=== PATIENT | male | born 1965 | race Caucasian/White ===

== ENCOUNTER 2016-07-09 12:03 | Emergency (ER) | payer MEDICARE, OTHER ==
[~2016-07-09] VITALS: Ht 177.8 cm; Wt 79.4 kg
[~2016-07-09 12:03] MED LIST: AMLODIPINE BESY10 MG PO
--- NOTE | 2016-07-09 12:21 | Emergency Room Report ---
History of Present Illness General Chief Complaint: Upper Extremity Injury Source: Patient (MANUEL MUELLER) Present Illness HPI The patient is a 50-year-old male presenting with right fourth finger pain. The patient states that he fell over today onto the right hand and felt immediate pain to the fourth finger. Patient denies any prior injury to this finger. Pain is described as an 8/10 dull ache it does not radiate. Pain worse with touch and movement. Pain has been relieved with ice. Patient denies any numbness or tingling. The patient denies any other injury or any other symptoms. (MANUEL MUELLER) Allergies: Coded Allergies: No Known Allergies (Unverified , 08/03/12) Patient History Past Medical History: see triage record Pertinent Family History: none Reviewed Nursing Documentation: PMH: Agreed, PSxH: Agreed (MANUEL MUELLER) Nursing Documentation-PMH Past Medical History: No History, Except For Hx Hypertension: Yes Hx Neurological Problems: Yes - Depression (MANUEL MUELLER) Review of Systems All Other Systems: negative except mentioned in HPI (MANUEL MUELLER) Physical Exam Vital Signs Date Time Temp Pulse Resp B/P Pulse Ox O2 Delivery O2 Flow Rate FiO2 07/09/16 12:07 98.6 114 18 155/93 99 Room Air Sp02 EP Interpretation: reviewed, normal General Appearance: no apparent distress, alert, GCS 15, non-toxic Head: normocephalic, atraumatic Eyes: bilateral eye PERRL, bilateral eye normal inspection ENT: hearing grossly normal, normal pharynx, no angioedema, normal voice Neck: full range of motion, supple/symm/no masses Musculoskeletal: decreased range of motion - Unable to fully extend at R 4th DIPJ, tender - TTP over R 4th DIPJ Neurologic: alert, oriented x3, responsive, motor strength/tone normal, sensory intact, speech normal Psychiatric: judgement/insight normal, memory normal, mood/affect normal, no suicidal/homicidal ideation Reflexes: 3+ bicep (R), 3+ bicep (L), 3+ tricep (R), 3+ tricep (L), 3+ knee (R) , 3+ knee (L) Skin: normal color, no rash, warm/dry, well hydrated Lymphatic: no adenopathy (MANUEL MUELLER) Procedures Splinting Splinting : Consent: Verbal Location: R hand 4th digit Pre-Made Type: metal Splint: finger Pre-Proc Neuro Vasc Exam: normal Post-Proc Neuro Vasc Exam: normal Patient Tolerated: Well Complications: None (MANUEL MUELLER) Medical Decision Making PA Attestation Dr. Zavala is my supervising physician. Patient management was discussed with my supervising physician (MANUEL MUELLER) Diagnostic Impression: Primary Impression: Sprain of finger, right ER Course The patient is a 50-year-old male presenting with right fourth finger pain. Ddx considered include but not limited to sprain/strain, fracture, contusion PE: vitals WNL. Right hand: Patient is unable to flex at the right fourth DIP joint. Tenderness to palpation over this area. No edema or ecchymosis. Sensation intact to light touch. Skin intact X-ray of the hand is unremarkable Patient is placed in a metal finger splint and is given a prescription for Motrin. ER precautions are given and the patient will follow up with PMD. Patient advised that he may need a referral for hand or orthopedic physician if pain or symptoms do not improve. (MANUEL MUELLER) ER Course Scribe documentation reviewed by me and is accurate. (Terrell Zavala M.D.) Other X-Ray Diagnostic Results Other X-Ray Diagnostic Results : X-Ray Ordered: R hand Date: Jul 09, 2016 EP Interpretation: Yes Findings: no fractures, no dislocation, no soft tissue swelling Number of Views: 3 PA Scribe Text I am acting as scribe for my supervising physician. My supervising physician's interpretation of the R hand xrays are there are no fractures, dislocations or soft tissue swelling. (MANUEL MUELLER.Dominique) Last Vital Signs Date Time Temp Pulse Resp B/P Pulse Ox O2 Delivery O2 Flow Rate FiO2 07/09/16 12:07 98.6 114 18 155/93 99 Room Air Status: improved (MANUEL MUELLER.AAlex) Disposition: HOME, SELF-CARE Condition: Improved Scripts Ibuprofen* (MOTRIN*) 600 Mg Tablet 600 MG ORAL Q8H Y for For Pain, #30 TAB 0 Refills Prov: MANUEL MUELLER 07/09/16 MANUEL MUELLRE Jul 09, 2016 12:20 Terrell Zavala M.D. Jul 10, 2016 01:28
[2016-07-09] MEDS ORDERED: IBUPROFEN600 MG ORAL (12:49)
[2016-07-09 12:56] VITALS: BP 144/78
--- NOTE | 2016-07-10 10:26 | Diagnostic Imaging Report ---
Indications: Right hand pain Technique: 3 views of the right hand. Findings: Comparison: None. No fracture, dislocation, lytic destruction, periosteal reaction, surrounding soft tissue swelling, or other acute changes are demonstrated. No deformity, alignment abnormality, arthritic change, soft tissue calcification, or other chronic changes are demonstrated. IMPRESSION: Negative right hand series.
== END 2016-07-09 12:57 | disposition home or self-care (01) ==
LOC: EMR 12:44
DX: S63.619A Unspecified sprain of unspecified finger, initial encounter (principal); I10 Essential (primary) hypertension; F32.9 Major depressive disorder, single episode, unspecified; W18.30XA Fall on same level, unspecified, initial encounter; Y92.9 Unspecified place or not applicable; Y99.8 Other external cause status
CPT/HCPCS: 29130; 99283

== ENCOUNTER 2017-07-13 12:14 | Emergency (ER) | payer MEDICARE ==
[~2017-07-13] VITALS: Ht 180.3 cm; Wt 72.6 kg
[~2017-07-13 12:14] MED LIST changes: +IBUPROFEN600 MG ORAL
[2017-07-13 12:15] VITALS: BP 107/79
[2017-07-13] MEDS ORDERED: Morphine Sulfate 4mg/ml Inj IVP ONE (12:45)
[2017-07-13 13:00] VITALS: BP 124/77
--- NOTE | 2017-07-13 13:32 | Emergency Room Report ---
History of Present Illness General Chief Complaint: Abdominal Pain Source: Patient (NELSY LOUIE M.D.) Present Illness HPI 51-year-old male presents ED for evaluation. Per EMS patient had a near syncopal episode at store today. BP was low in the field. Improved with IV fluids. Patient states just prior to episode he was having extreme abdominal pain. Noted swelling just above his groin. Pain is a 7/10, sharp, nonradiating. Denies any scrotal pain. Denies any nausea or vomiting. Denies chest pain shortness of breath. Denies any dizziness at this time. Denies any headache. No other aggravating relieving factors. Denies any other associated symptoms (NELSY LOUIE M.D.) Allergies: Coded Allergies: No Known Allergies (Unverified , 08/03/12) Patient History Past Medical History: HTN Past Surgical History: none Pertinent Family History: none Social History: Denies: smoking, alcohol use, drug use Immunizations: UTD Reviewed Nursing Documentation: PMH: Agreed, PSxH: Agreed (NELSY LOUIE M.D.) Nursing Documentation-PMH Past Medical History: No History, Except For Hx Hypertension: Yes (NELSY LOUIE M.D.) Review of Systems All Other Systems: negative except mentioned in HPI (NELSY LOUIE M.D.) Physical Exam Vital Signs Date Time Temp Pulse Resp B/P (MAP) Pulse Ox O2 Delivery O2 Flow Rate FiO2 07/13/17 11:58 98.2 69 18 120/76 99 Room Air 98.2 Sp02 EP Interpretation: reviewed, normal General Appearance: no apparent distress, alert, GCS 15, non-toxic Head: normocephalic, atraumatic Eyes: bilateral eye normal inspection, bilateral eye PERRL ENT: hearing grossly normal, normal pharynx, no angioedema, normal voice Neck: full range of motion, supple/symm/no masses Respiratory: chest non-tender, lungs clear, normal breath sounds, speaking full sentences Cardiovascular #1: regular rate, rhythm, no edema Cardiovascular #2: 2+ carotid (R), 2+ carotid (L), 2+ radial (R), 2+ radial (L) , 2+ dorsalis pedis (R), 2+ dorsalis pedis (L) Gastrointestinal: normal bowel sounds, non tender, soft, non-distended, no guarding, no rebound Rectal: deferred Genitourinary: normal inspection, no CVA tenderness, scrotum normal, other - R inguinal pain/swelling Musculoskeletal: back normal, gait/station normal, normal range of motion, non- tender Neurologic: alert, oriented x3, responsive, motor strength/tone normal, sensory intact, speech normal Psychiatric: judgement/insight normal, memory normal, mood/affect normal, no suicidal/homicidal ideation Reflexes: 3+ bicep (R), 3+ bicep (L), 3+ tricep (R), 3+ tricep (L), 3+ knee (R) , 3+ knee (L) Skin: normal color, no rash, warm/dry, well hydrated Lymphatic: no adenopathy (NELSY LOUIE M.D.) Medical Decision Making Diagnostic Impression: Primary Impression: Abdominal pain Additional Impression: Near syncope ER Course Patient was signed out to me for final disposition. I've evaluated the patient as well. Please refer to my partner dictation for full history and physical. I have evaluated the patient. Patient abdomen was soft. Patient laboratory workup was negative. CT was negative. Given the patient's back to baseline for the patient could have had a vasovagal or presyncopal episode secondary to a inguinal hernia that has spontaneously reduced. I recommend outpatient followup with Gen. surgery.Patient is advised to follow up with primary doctor in 2-3 days and return the emergency room for any worsening symptoms and as needed. (VANESA MARCELINO M.D.) EKG Diagnostic Results Rate: normal Rhythm: NSR ST Segments: no acute changes ASA given to the pt in ED: No (NELSY LOUIE M.D.) Rhythm Strip Diag. Results EP Interpretation: yes Rhythm: NSR, no PVC's, no ectopy (NELSY LOUIE M.D.) Last Vital Signs Date Time Temp Pulse Resp B/P (MAP) Pulse Ox O2 Delivery O2 Flow Rate FiO2 07/13/17 13:00 97.8 67 16 124/77 100 Room Air 97.8 (NELSY LOUIE M.D.) Disposition: HOME, SELF-CARE Condition: Stable Referrals: NOT CHOSEN IPA/MD,REFERRING (PCP) NELSY LOUIE M.D. Jul 13, 2017 13:32 VANESA MARCELINO M.D. Jul 13, 2017 21:52
[2017-07-13 13:41] LABS: ANION GAP 4 mmol/L (5-15); BASOPHILS % (AUTO) 0.7 % (0.0-2.0); BLOOD UREA NITROGEN 21 mg/dL (7-18); CALCIUM 8.6 MG/DL (8.5-10.1); CARBON DIOXIDE 31 MMOL/L (21-32); CHLORIDE 104 MMOL/L (98-107); CREATININE 1.1 MG/DL (0.55-1.30); EOSINOPHILS % (AUTO) 1.2 % (0.0-3.0); HEMATOCRIT 47.5 % (42.0-52.0); LYMPHOCYTES % (AUTO) 26.8 % (20.0-45.0); MEAN CORPUSCULAR VOLUME 94 FL (80-99); NEUTROPHILS % (AUTO) 63.3 % (45.0-75.0); PLATELET COUNT 233 K/UL (150-450); POTASSIUM 4.4 MMOL/L (3.5-5.1); RED BLOOD COUNT 5.05 M/UL (4.70-6.10); RED CELL DISTRIBUTION WIDTH 11.9 % (11.6-14.8); SODIUM 139 MMOL/L (136-145); WHITE BLOOD COUNT 7.9 K/UL (4.8-10.8)
[2017-07-13 13:44] LABS: ALANINE AMINOTRANSFERASE 35 U/L (12-78); ALBUMIN 3.8 G/DL (3.4-5.0); ALBUMIN/GLOBULIN RATIO 1.2 (1.0-2.7); ALKALINE PHOSPHATASE 60 U/L (46-116); ASPARTATE AMINO TRANSFERASE 28 U/L (15-37); BILIRUBIN,TOTAL 0.8 MG/DL (0.2-1.0)
[2017-07-13 14:19] VITALS: BP 131/75
--- NOTE | 2017-07-13 14:48 | Diagnostic Imaging Report ---
Indication: Abdominal pain Technique: Continuous helical transaxial imaging of the abdomen and pelvis was obtained from the lung bases to the pubic symphysis during intravenous contrast administration. Coronal 2-D reformats were also obtained. Study obtained in a Siemens sensation [address] Automatic Exposure Control was utilized. Total Dose length Product (DLP): 736.[address] Dose Index Volume (CTDIvol): 10.82,12.2 mGy Comparison: None Findings: The lung bases are clear. There is low-attenuation involving the portal triads likely periportal edema which is nonspecific finding. Gallbladder is unremarkable. There is no biliary ductal dilatation. Kidneys appear normal bilaterally. Spleen is unremarkable. The pancreas is unremarkable. There is no adrenal mass. There is no hydronephrosis. The bladder is mildly distended. Fecal retention noted within the colon moderate in degree. Narrowing of the L5-S1 disc with endplate and facet hypertrophies noted. IMPRESSION: No acute findings Periportal edema nonspecific in nature. Potential associations are numerous including CHF, hepatitis, fluid overload states, trauma, among others. Small hiatal hernia. Degenerative disc disease L5-S1 The CT scanner at [facility] is accredited by the [employer] and the scans are performed using dose optimization techniques as appropriate to a performed exam including Automatic Exposure control.
[2017-07-13 15:08] VITALS: BP 116/75
[2017-07-13 15:33] VITALS: BP 116/75
--- NOTE | 2017-07-25 16:57 | Cardiology Report ---
APPROVED REPORT EKG Measurement Heart [id number] Sinus bradycardia Otherwise normal ECG
== END 2017-07-13 15:34 | disposition home or self-care (01) ==
LOC: EDBD 12:14 → EMR 13:00
DX: R10.9 Unspecified abdominal pain (principal); I10 Essential (primary) hypertension; R55 Syncope and collapse; K44.9 Diaphragmatic hernia without obstruction or gangrene; M51.37 Other intervertebral disc degeneration, lumbosacral region
CPT/HCPCS: 36415; 74177; 80053; 83690; 84484; 85025; 93005; 96361; 96374; 99284; J2270; Q9967

== ENCOUNTER 2017-08-16 20:17 | Emergency (ER) | payer MEDICARE ==
[~2017-08-16] VITALS: Ht 177.8 cm; Wt 72.6 kg
--- NOTE | 2017-08-16 20:32 | Emergency Room Report ---
History of Present Illness General Chief Complaint: To Be Triaged Source: Patient Present Illness HPI Patient persist with complaints of palpitation sensation Initially report was chest pain However patient reports that he does not have any chest pain He reports that he was sitting down when he felt some palpitation sensation When he checked his heart rate in the carotid and felt to be fast and he presents for further evaluation Patient reports that he has surgery coming up in September for bilateral inguinal hernias Denies any vomiting or diarrhea denies any back or flank pain Allergies: Coded Allergies: No Known Allergies (Unverified , 08/16/17) Patient History Past Medical History: see triage record Pertinent Family History: none Reviewed Nursing Documentation: PMH: Agreed; PSxH: Agreed Nursing Documentation-PMH Hx Hypertension: Yes Hx Neurological Problems: Yes - Depression Review of Systems All Other Systems: negative except mentioned in HPI Physical Exam Vital Signs Date Time Temp Pulse Resp B/P (MAP) Pulse Ox O2 Delivery O2 Flow Rate FiO2 08/16/17 20:22 98.0 80 14 141/94 100 Room Air 98.1 Sp02 EP Interpretation: reviewed, normal General Appearance: well appearing, no apparent distress Head: normocephalic, atraumatic Eyes: bilateral eye PERRL, bilateral eye EOMI ENT: hearing grossly normal, normal pharynx, TMs + canals normal, uvula midline Neck: full range of motion, supple, no meningismus, no bony tend Respiratory: lungs clear, normal breath sounds, no rhonchi, no respiratory distress, no retraction, no accessory muscle use Cardiovascular #1: normal peripheral pulses, regular rate, rhythm, no edema, no gallop, no JVD, no murmur Gastrointestinal: normal bowel sounds, non tender, soft, no mass, no organomegaly, non-distended, no guarding, no hernia, no pulsatile mass, no rebound Musculoskeletal: normal inspection Neurologic: oriented x3, responsive, grants administrator III-XII nml as tested, motor strength/ tone normal, sensory intact Psychiatric: mood/affect normal Skin: normal color, no rash, warm/dry, palpation normal Lymphatic: normal inspection, no adenopathy Medical Decision Making Diagnostic Impression: Primary Impression: Palpitations ER Course Patient is a fairly complex patient with multiple differential to consideration including but not limited to cardiac cardiopulmonary and vascular emergencies Patient had blood work and imaging initiated All within normal limits patient has remained in sinus rhythm feels significantly improved the exact etiology of the palpitations is not clear however the patient appears stable for close outpatient follow-up Labs Test 08/16/17 21:37 White Blood Count 6.4 K/UL (4.8-10.8) Red Blood Count 4.77 M/UL (4.70-6.10) Hemoglobin 15.2 G/DL (14.2-18.0) Hematocrit 44.8 % (42.0-52.0) Mean Corpuscular Volume 94 FL (80-99) Mean Corpuscular Hemoglobin 31.8 PG (27.0-31.0) Mean Corpuscular Hemoglobin Concent 33.8 G/DL (32.0-36.0) Red Cell Distribution Width 11.4 % (11.6-14.8) Platelet Count 198 K/UL (150-450) Mean Platelet Volume 7.5 FL (6.5-10.1) Neutrophils (%) (Auto) 60.5 % (45.0-75.0) Lymphocytes (%) (Auto) 29.6 % (20.0-45.0) Monocytes (%) (Auto) 7.0 % (1.0-10.0) Eosinophils (%) (Auto) 2.0 % (0.0-3.0) Basophils (%) (Auto) 0.9 % (0.0-2.0) Sodium Level 142 MMOL/L (136-145) Potassium Level 4.0 MMOL/L (3.5-5.1) Chloride Level 105 MMOL/L (98-107) Carbon Dioxide Level 33 MMOL/L (21-32) Anion Gap 4 mmol/L (5-15) Blood Urea Nitrogen 21 mg/dL (7-18) Creatinine 1.0 MG/DL (0.55-1.30) Estimat Glomerular Filtration Rate > 60 mL/min (>60) Glucose Level 97 MG/DL (74-106) Calcium Level 8.7 MG/DL (8.5-10.1) Total Bilirubin 0.3 MG/DL (0.2-1.0) Aspartate Amino Transf (AST/SGOT) 18 U/L (15-37) Alanine Aminotransferase (ALT/SGPT) 31 U/L (12-78) Alkaline Phosphatase 76 U/L (46-116) Total Creatine Kinase 64 U/L (26-308) Creatine Kinase MB 0.6 NG/ML (0.0-3.6) Creatine Kinase MB Relative Index 0.9 Troponin I 0.000 ng/mL (0.000-0.056) Total Protein 7.1 G/DL (6.4-8.2) Albumin 3.9 G/DL (3.4-5.0) Globulin 3.2 g/dL Albumin/Globulin Ratio 1.2 (1.0-2.7) EKG Diagnostic Results Rate: normal Rhythm: NSR ST Segments: no acute changes Rhythm Strip Diag. Results EP Interpretation: yes Rate: 67 Rhythm: NSR, no PVC's, no ectopy Chest X-Ray Diagnostic Results Chest X-Ray Diagnostic Results : Chest X-Ray Ordered: Yes # of Views/Limited/Complete: 1 View Indication: Chest Pain EP Interpretation: Yes Interpretation: no consolidation, no effusion, no pneumothorax Impression: Other Last Vital Signs Date Time Temp Pulse Resp B/P (MAP) Pulse Ox O2 Delivery O2 Flow Rate FiO2 4//18 20:22 98.0 80 14 141/94 100 Room Air 98.1 Status: improved Disposition: HOME, SELF-CARE Condition: Improved Additional Instructions: Patient is provided with the discharge instructions notified to follow up with primary doctor in the next 2-3 days otherwise return to the er with any worsening symptoms. Please note that this report is being documented using [employer] technology. This can lead to erroneous entry secondary to incorrect interpretation by the dictating instrument. Hector Martinez DO Aug 16, 2017 20:32
[2017-08-16 20:36] VITALS: BP 141/94
[2017-08-16 22:07] LABS: BASOPHILS % (AUTO) 0.9 % (0.0-2.0); HEMATOCRIT 44.8 % (42.0-52.0); HEMOGLOBIN 15.2 G/DL (14.2-18.0); LYMPHOCYTES % (AUTO) 29.6 % (20.0-45.0); MEAN CORPUSCULAR VOLUME 94 FL (80-99); NEUTROPHILS % (AUTO) 60.5 % (45.0-75.0); PLATELET COUNT 198 K/UL (150-450); RED BLOOD COUNT 4.77 M/UL (4.70-6.10); RED CELL DISTRIBUTION WIDTH 11.4 % (11.6-14.8); WHITE BLOOD COUNT 6.4 K/UL (4.8-10.8)
[2017-08-16 22:19] LABS: ANION GAP 4 mmol/L (5-15); BLOOD UREA NITROGEN 21 mg/dL (7-18); CALCIUM 8.7 MG/DL (8.5-10.1); CARBON DIOXIDE 33 MMOL/L (21-32); CHLORIDE 105 MMOL/L (98-107); SODIUM 142 MMOL/L (136-145)
[2017-08-16 22:37] LABS: ALANINE AMINOTRANSFERASE 31 U/L (12-78); ALBUMIN 3.9 G/DL (3.4-5.0); ALBUMIN/GLOBULIN RATIO 1.2 (1.0-2.7); ALKALINE PHOSPHATASE 76 U/L (46-116); ASPARTATE AMINO TRANSFERASE 18 U/L (15-37); BILIRUBIN,TOTAL 0.3 MG/DL (0.2-1.0); CKMB 0.6 NG/ML (0.0-3.6); CREATINE KINASE 64 U/L (26-308)
[2017-08-16 23:14] VITALS: BP 120/71
--- NOTE | 2017-08-17 11:15 | Diagnostic Imaging Report ---
Indication: Chest pain Technique: One view of the chest Comparison: 08/03/2012 Findings: Lungs and pleural spaces are clear. Heart size is normal. No significant interim change Impression: No acute process
== END 2017-08-16 23:30 | disposition home or self-care (01) ==
LOC: EMR 20:33
DX: R00.2 Palpitations (principal); I10 Essential (primary) hypertension; F32.89 Other specified depressive episodes
CPT/HCPCS: 36415; 71045; 80053; 82550; 82553; 84484; 85025; 93005; 99283

== ENCOUNTER 2018-11-15 02:32 | Emergency (ER) | payer MEDICARE ==
[~2018-11-15] VITALS: Ht 177.8 cm; Wt 83.9 kg
--- NOTE | 2018-11-15 03:00 | NUR ---
ED Nurse Note: iv access established. blood and urine sent down to lab.
[2018-11-15] MEDS ORDERED: Sodium Chloride 2,500 ML IVLG ONE (03:15)
[2018-11-15 03:22] LABS: APPEARANCE,URINE CLEAR; BILIRUBIN, URINE NEGATIVE (NEGATIVE); GLUCOSE, URINE (UA) NEGATIVE (NEGATIVE); KETONES,URINE NEGATIVE (NEGATIVE); LEUKOCYTE ESTERASE ,URINE 1+ (NEGATIVE); NITRITE,URINE NEGATIVE (NEGATIVE); PH,URINE 6 (4.5-8.0); PROTEIN,URINE 2+ (NEGATIVE); UROBILINOGEN,URINE 1 MG/DL (0.0-1.0)
--- NOTE | 2018-11-15 03:26 | NUR ---
ED Nurse Note: flu swab collected; sent down to lab.
[2018-11-15 03:28] LABS: BASOPHILS % (AUTO) 2.3 % (0.0-2.0); EOSINOPHILS % (AUTO) 0.8 % (0.0-3.0); HEMATOCRIT 49.1 % (42.0-52.0); HEMOGLOBIN 16.4 G/DL (14.2-18.0); LYMPHOCYTES % (AUTO) 8.7 % (20.0-45.0); MEAN CORPUSCULAR VOLUME 91 FL (80-99); MONOCYTES % (AUTO) 10.3 % (1.0-10.0); PLATELET COUNT 255 K/UL (150-450); RED BLOOD COUNT 5.38 M/UL (4.70-6.10); RED CELL DISTRIBUTION WIDTH 12.2 % (11.6-14.8); WHITE BLOOD COUNT 8.3 K/UL (4.8-10.8)
[2018-11-15 03:39] LABS: ANION GAP 10 mmol/L (5-15); BLOOD UREA NITROGEN 16 mg/dL (7-18); CARBON DIOXIDE 26 MMOL/L (21-32); CHLORIDE 101 MMOL/L (98-107); CREATININE 1.4 MG/DL (0.55-1.30); POTASSIUM 3.8 MMOL/L (3.5-5.1); SODIUM 137 MMOL/L (136-145)
[2018-11-15 03:40] LABS: INR 1.1 (0.9-1.1)
[2018-11-15 03:41] LABS: COLOR,URINE YELLOW
[2018-11-15 03:48] LABS: ALANINE AMINOTRANSFERASE 17 U/L (12-78); ALBUMIN/GLOBULIN RATIO 1.1 (1.0-2.7); ALKALINE PHOSPHATASE 70 U/L (46-116); AMYLASE 37 U/L (25-115); ASPARTATE AMINO TRANSFERASE 13 U/L (15-37); BILIRUBIN,TOTAL 0.6 MG/DL (0.2-1.0); CREATINE KINASE 42 U/L (26-308)
[2018-11-15 03:58] VITALS: BP 126/79
--- NOTE | 2018-11-15 04:26 | Emergency Room Report ---
History of Present Illness General Chief Complaint: Fever Source: Patient Present Illness HPI The patient presents with 1 week of intermittent fevers. He is been taking ibuprofen. He denies any chills. Denies any rashes. No cough, sore throat, nausea, vomiting or diarrhea. He feels it slightly difficult to catch his breath and has some pressure in the right chest. His temperature was 105 this evening. He was told to come to the emergency department. No dysuria or hematuria. He denies any joint pain. Has a mild headache rated 2/10. There is no neck stiffness. No travel, ill contacts, prior immunologic diseases, new medications. The patient denies medical problems. He is never been ill like this in the past. Allergies: Coded Allergies: No Known Allergies (Unverified , 08/16/17) Patient History Past Medical History: see triage record Social History: Denies: smoking Social History Narrative from home Reviewed Nursing Documentation: PMH: Agreed; PSxH: Agreed Nursing Documentation-PMH Hx Hypertension: Yes Hx Gastrointestinal Problems: Yes - hernia Hx Neurological Problems: Yes - MS Review of Systems All Other Systems: negative except mentioned in HPI Physical Exam Vital Signs Date Time Temp Pulse Resp B/P (MAP) Pulse Ox O2 Delivery O2 Flow Rate FiO2 11/15/18 02:47 100.0 114 16 131/85 (100) 91 Room Air Sp02 EP Interpretation: reviewed, normal General Appearance: well appearing, no apparent distress, GCS 15, non-toxic Head: normocephalic, atraumatic Eyes: bilateral eye normal inspection, bilateral eye PERRL, bilateral eye EOMI ENT: normal pharynx, no angioedema, TMs + canals normal, moist mucus membranes Neck: supple Respiratory: lungs clear, normal breath sounds, other - (Repeat exam was sure to off reveal rales at the right base) Cardiovascular #1: tachycardia Cardiovascular #2: 2+ radial (R) Gastrointestinal: normal inspection, normal bowel sounds, non tender, no mass, non-distended Genitourinary: no CVA tenderness Musculoskeletal: back normal, gait/station normal, normal range of motion Neurologic: alert, oriented x3, grossly normal Psychiatric: mood/affect normal Skin: no rash Medical Decision Making Diagnostic Impression: Primary Impression: Right lower lobe pneumonia Qualified Codes: J18.1 - Lobar pneumonia, unspecified organism ER Course The patient presents with 1 week of fever with minimal other symptoms. Differential includes sepsis, pneumonia, urinary tract infection, viral syndrome , UTI amongst others. Evaluation will be with EKG, chest x-ray and labs. The patient will be treated with IV hydration. EKG normal, chest x-ray haziness right base. White count and CMP normal. Urinalysis clear. Lactate normal. Levaquin is begun for right lower lobe pneumonia. Based on clinical indicators admission is not required at this time. Discussed findings with patient. Patient improved and stable for outpatient observation and treatment. He was advised to follow-up closely with his own doctor. Laboratory Tests Test 11/15/18 03:00 White Blood Count 8.3 K/UL (4.8-10.8) Red Blood Count 5.38 M/UL (4.70-6.10) Hemoglobin 16.4 G/DL (14.2-18.0) Hematocrit 49.1 % (42.0-52.0) Mean Corpuscular Volume 91 FL (80-99) Mean Corpuscular Hemoglobin 30.5 PG (27.0-31.0) Mean Corpuscular Hemoglobin Concent 33.5 G/DL (32.0-36.0) Red Cell Distribution Width 12.2 % (11.6-14.8) Platelet Count 255 K/UL (150-450) Mean Platelet Volume 5.8 FL (6.5-10.1) L Neutrophils (%) (Auto) 78.0 % (45.0-75.0) H Lymphocytes (%) (Auto) 8.7 % (20.0-45.0) L Monocytes (%) (Auto) 10.3 % (1.0-10.0) H Eosinophils (%) (Auto) 0.8 % (0.0-3.0) Basophils (%) (Auto) 2.3 % (0.0-2.0) H Prothrombin Time 11.2 SEC (9.30-11.50) Prothrombin Time INR 1.1 (0.9-1.1) PTT 33 SEC (23-33) Urine Color Yellow Urine Appearance Clear Urine pH 6 (4.5-8.0) Urine Specific [place] 1.015 (1.005-1.035) Urine Protein 2+ (NEGATIVE) H Urine Glucose (UA) Negative (NEGATIVE) Urine Ketones Negative (NEGATIVE) Urine Blood 2+ (NEGATIVE) H Urine Nitrite Negative (NEGATIVE) Urine Bilirubin Negative (NEGATIVE) Urine Urobilinogen 1 MG/DL (0.0-1.0) H Urine Leukocyte Esterase 1+ (NEGATIVE) H Urine RBC 2-4 /HPF (0 - 0) H Urine WBC 0-2 /HPF (0 - 0) Urine Squamous Epithelial Cells None /LPF (NONE/OCC) Urine Bacteria Few /HPF (NONE) Sodium Level 137 MMOL/L (136-145) Potassium Level 3.8 MMOL/L (3.5-5.1) Chloride Level 101 MMOL/L (98-107) Carbon Dioxide Level 26 MMOL/L (21-32) Anion Gap 10 mmol/L (5-15) Blood Urea Nitrogen 16 mg/dL (7-18) Creatinine 1.4 MG/DL (0.55-1.30) H Estimate Glomerular Filtration Rate 53.2 mL/min (>60) Glucose Level 115 MG/DL (74-106) H Lactic Acid Level 0.90 mmol/L (0.4-2.0) Calcium Level 9.0 MG/DL (8.5-10.1) Magnesium Level 2.0 MG/DL (1.8-2.4) Total Bilirubin 0.6 MG/DL (0.2-1.0) Aspartate Amino Transferase (AST) 13 U/L (15-37) L Alanine Aminotransferase (ALT) 17 U/L (12-78) Alkaline Phosphatase 70 U/L (46-116) Total Creatine Kinase 42 U/L (26-308) Troponin I 0.000 ng/mL (0.000-0.056) Pro-B-Type Natriuretic Peptide 32 pg/mL (0-125) Total Protein 7.6 G/DL (6.4-8.2) Albumin 4.0 G/DL (3.4-5.0) Globulin 3.6 g/dL Albumin/Globulin Ratio 1.1 (1.0-2.7) Amylase Level 37 U/L (25-115) Lipase 96 U/L (73-393) Microbiology Date/Time Source Procedure Growth Status 11/15/18 03:20 Nasal Nares - Final Complete 11/15/18 03:20 Nasal Nares - Final Complete EKG Diagnostic Results Rate: normal Rhythm: NSR ST Segments: no acute changes Rhythm Strip Diag. Results EP Interpretation: yes Rhythm: NSR, no PVC's, no ectopy Chest X-Ray Diagnostic Results Chest X-Ray Diagnostic Results : Chest X-Ray Ordered: Yes # of Views/Limited/Complete: 1 View Indication: Other EP Interpretation: Yes Interpretation: no effusion, no pneumothorax, other - RLL pneumonia Impression: Other Electronically Signed by: Electronically signed by Terrell Zavala MD Last Vital Signs Date Time Temp Pulse Resp B/P (MAP) Pulse Ox O2 Delivery O2 Flow Rate FiO2 11/15/18 04:55 98.5 94 16 126/79 96 Room Air Status: improved Disposition: HOME, SELF-CARE Condition: Improved Scripts Acetaminophen (Tylenol) 325 Mg Tablet 650 MG ORAL Q6H PRN for Prn Pain/Headache/Temp > 101, #20 TAB 0 Refills Prov: Terrell Zavala MD 11/15/18 Ibuprofen* (MOTRIN*) 600 Mg Tablet 600 MG ORAL Q6H PRN for For Pain, #20 TAB 0 Refills Prov: Terrell Zavala MD 11/15/18 Levofloxacin (LEVOFLOXACIN*) 500 Mg Tablet 500 MG ORAL DAILY, #7 TAB Prov: Terrell Zavala MD 11/15/18 Referrals: NON PHYSICIAN (PCP) Terrell Zavala MD Nov 15, 2018 04:26
[2018-11-15] MEDS ORDERED: IBUPROFEN600 MG ORAL (04:29)
[2018-11-15] MEDS ORDERED: LEVOFLOXACIN500 MG ORAL (04:29)
[2018-11-15] MEDS ORDERED: TYLENOL325 MG ORAL (04:29)
[2018-11-15 04:55] VITALS: BP 126/79
--- NOTE | 2018-11-15 04:55 | NUR ---
ER DISCHARGE NOTE: Patient is cleared to be discharged per ERMD, pt is aox4, on room air, with stable vital signs. pt was given dc and prescription instructions, pt was able to verbalize understanding, pt id band and iv site removed without complications. pt is able to ambulate with steady gait. pt took all belongings.
--- NOTE | 2018-11-15 13:42 | Diagnostic Imaging Report ---
Indication: Dyspnea Comparison: 08/16/2017 A single view chest radiograph was obtained. Findings: There is an abnormal density at the right lung base. Correlate clinically. Heart size is normal. Bones are unremarkable. IMPRESSION: Right basal infiltrate versus mass. Follow-up recommended. CT may be helpful
== END 2018-11-15 04:55 | disposition home or self-care (01) ==
LOC: EMR 03:03
DX: J18.1 Lobar pneumonia, unspecified organism (principal); I10 Essential (primary) hypertension; G35 Multiple sclerosis
CPT/HCPCS: 36415; 71045; 80053; 81003; 82150; 82550; 83605; 83690; 83735; 83880; 84484; 85025; 85610; 85730; 86710; 93005; 96361; 96365; 99284; J1956